=== PATIENT | male | born 1980 | race Caucasian/White ===

== ENCOUNTER 2018-02-09 01:29 | Emergency (ER) | payer SELFPAY ==
[~2018-02-09] VITALS: Ht 162.6 cm; Wt 65.9 kg
[2018-02-09 01:34] VITALS: BP 141/96
--- NOTE | 2018-02-09 01:43 | NUR ---
Gladys harper in [facility] - 02/09/18 at [address] Vee evaluating patient at bedside.
--- NOTE | 2018-02-09 01:43 | NUR ---
PT TAKEN TO BED 2
--- NOTE | 2018-02-09 01:46 | NUR ---
37 YO M TO THE ER WITH C/O ANXIETY AND ABD PAIN. PT STATES THAT HE JUST HAD A BREAKUP AND IS HAVING FEELING OF REFLUX AND ANXITY. PAIN 5/10 IN EPIGASTRIC AND UPPER RIGHT ABD. DENIES N/V/D; SKIN IS PINK/WARM/DRY; AAOX4 WITH EVEN AND STEADY GAIT; LUNGS CLEAR BL; HR EVEN AND REGULAR; PT DENIES ANY FEVER, CP, SOB, OR COUGH AT THIS TIME; PATIENT STATES PAIN OF 5/10 AT THIS TIME; VSS; PATIENT POSITIONED FOR COMFORT; HOB ELEVATED; BEDRAILS UP X2; BED DOWN. ER MD MADE AWARE OF PT STATUS.
[2018-02-09] MEDS ORDERED: hydrOXYzine PAMOATE 25 MG CAP PO STA (02:25)
--- NOTE | 2018-02-09 02:30 | NUR ---
PT SPEAKING WITH FAMILY IN NO APPARENT DISTRESS.
[2018-02-09] MEDS ORDERED: LORazepam 1 MG TAB PO ONE (02:55)
[2018-02-09 03:22] VITALS: BP 138/92
--- NOTE | 2018-02-09 03:22 | NUR ---
Patient discharged with v/s stable. Written and verbal after care instructions given and explained. Patient alert, oriented and verbalized understanding of instructions. Ambulatory with steady gait. All questions addressed prior to discharge. ID band removed. Patient advised to follow up with PMD. Rx of HYDROXYZINE HYDROCHLORIDE 25MG given. Patient educated on indication of medication including possible reaction and side effects. Opportunity to ask questions provided and answered.
== END 2018-02-09 03:22 | disposition home or self-care (01) ==
LOC: MED 01:29
DX: F41.8 Other specified anxiety disorders (principal); I10 Essential (primary) hypertension
CPT/HCPCS: 99283; Q0177